=== PATIENT | male | born 1980 | race African-American/Black ===

== ENCOUNTER 2016-06-04 20:02 | Emergency (ER) | payer OTHER ==
[~2016-06-04] VITALS: Ht 175.3 cm; Wt 100.0 kg
[2016-06-04 20:03] VITALS: BP 157/81; PULSE 93; RESP 16; TEMP 98.3; O2SAT 96
--- NOTE | 2016-06-04 20:36 | PD ---
HPI Chief Complaint: Eye Problems/Injury Time Seen by Provider: 20:35 Travel History International Travel<30 days: No Contact w/Intl Traveler<30days: No Traveled to known affect area: No History of Present Illness HPI Patient comes in for evaluation of pain in his right eye that occurred shortly prior to arrival. Patient states he was stacking broke down boxes for recycling when one slid down and hit him in his right eye lateral aspect. Patient states he rinsed his eye with water prior to coming emergency department seemed to help with the pain. Patient denies a change in vision is reports pain in his eye without radiation. Denies any headache or foreign body sensation. FOR[facility]LY [facility] Social History Tobacco Use: Yes Substance Use: No Allergies-Medications (Allergen,Severity, Reaction): Coded Allergies: No Known Allergies (Unverified , 06/04/16) Reported Meds & Prescriptions Reported Meds & Active Scripts Active Erythromycin Opth Oint 5 Mg/Gm Oint 1 Applic RIGHT EYE QID Physical Exam Narrative GENERAL: Well-developed, overly nourished, in no acute distress, and non-ill appearing. SKIN: Warm and dry. HEAD: Atraumatic. Normocephalic. EYES: Pupils equal and round. EOMI. No scleral icterus. No injection or drainage. Patient appears to have a corneal abrasion noted over the right eye. No obvious foreign body noted. ENT: No nasal bleeding or discharge. Mucous membranes pink and moist. NECK: Trachea midline. Supple. No nuclear rigidity. RESPIRATORY: No accessory muscle use. No respiratory distress. MUSCULOSKELETAL: No obvious deformities. No clubbing. No cyanosis. No edema. Full range of motion. NEUROLOGICAL: Awake and alert. No obvious cranial nerve deficits. Motor grossly within normal limits. Normal speech. PSYCHIATRIC: Appropriate mood and affect; insight and judgment normal. Data Data Last Documented VS Vital Signs Date Time Temp Pulse Resp B/P Pulse Ox O2 Delivery O2 Flow Rate FiO2 06/04/16 20:03 98.3 93 16 157/81 96 Room Air Orders Proparacaine 0.5% Opth Soln (Alcaine 0.5 (06/04/16 20:45) MDM Medical Decision Making Medical Screen Exam Complete: Yes Emergency Medical Condition: Yes Differential Diagnosis Foreign body, corneal abrasion, corneal ulcer, periorbital trauma, other Narrative Course The patient has a small corneal abrasion. The patient was examined, stained, and was lamp exam was performed. No evidence of foreign body by exam. There is no evidence of iritis, glaucoma, preseptal cellulitis, periorbital or orbital cellulitis. The diagnosis and problem was discussed with the patient, and the need for frequent ophthalmologic antibiotics was discussed with the patient. The patient was instructed to follow up with ophthalmology next 1-3 days or return here if worsened, increased pain, decreased vision, swelling around the eye or as needed. The patient agreed with plan. Patient in no obvious distress upon re-evaluation. Patient was asked if they wanted to speak to my attending, which the patient did not wish to do at this time. Any questions/concerns in reference to patient diagnosis/condition discussed and clarified prior to patient's discharge. Reinforced sheer importance of close follow up with ophthalmology. Instructed patient to return to ED immediately, if symptoms return/worsen. Pt showed understanding of above instructions. Further instructions and recommendations were detailed in discharge paperwork. Pt ambulated without difficulty out of ED at discharge. Procedures Procedure Narrative Verbal consent was obtained. Affected eye was anesthetized using proparacaine. Fluorescein staining and Wood lamp exam performed with uptake seen. Negative Moody sign. No hyphema, hyperemia, or rust ring. Eyelid was everted with no foreign body noted. No tenderness bilateral temporal arteries to palpation. Patient tolerated procedure well. Diagnosis Primary Impression: Right corneal abrasion Qualified Code: S05.01XA - Right corneal abrasion, initial encounter Referrals: Deya Washington MD Patient Instructions: Corneal Abrasion (ED), General Instructions Additional Instructions: Follow-up with screen maker in one to 3 days for reevaluation. Take all medication as prescribed. Use [id number] Tylenol and) as needed for pain. Follow instructions on the packing. Return to the emergency department if symptoms get worse. Med/Other Pt SpecificInfo: Prescription(s) given Scripts Erythromycin Opth Oint 5 Mg/Gm Oint1 Applic RIGHT EYE QID #1 TUBE Ref 0 Prov:Anna Quan MD 06/04/16 Disposition: 01 DISCHARGE HOME Condition: Stable Ameya Lanier Jun 04, 2016 20:36
[2016-06-04] MEDS ORDERED: PROPARACAINE HCL 0.5% OPHT SOLN 15 ML BTL LEFT EYE ONE (20:45)
[2016-06-04] MEDS ORDERED: ERYTOIN10 RIGHT EYE (20:49)
== END 2016-06-04 21:09 | disposition home or self-care (01) ==
LOC: NEPB 20:02
DX: S05.01XA Injury of conjunctiva and corneal abrasion without foreign body, right eye, initial encounter (principal); W20.8XXA Other cause of strike by thrown, projected or falling object, initial encounter; Y99.0 Civilian activity done for income or pay; Z72.0 Tobacco use
CPT/HCPCS: 99283

== ENCOUNTER 2017-02-07 21:24 | Emergency (ER) | payer OTHER ==
[~2017-02-07] VITALS: Ht 175.3 cm; Wt 105.0 kg
[~2017-02-07 21:24] MED LIST: ERYTOIN10 RIGHT EYE
[2017-02-07 21:26] VITALS: BP 161/84; PULSE 118; RESP 16; TEMP 100; O2SAT 97
[2017-02-07] MEDS ORDERED: SODIUM CHLOR 0.9% 1000 ML INJ 1,000 ML IV ONE (22:15)
[2017-02-07] MEDS ORDERED: KETOROLAC TROMETHAMINE 30 MG/ML (IVP) VIAL IV PUSH ONE (22:15)
[2017-02-07] MEDS ORDERED: ONDANSETRON HCL 4 MG/2 ML VIAL IV PUSH ONE (22:15)
[2017-02-07] MEDS ORDERED: SODIUM CHLORIDE 0.9% FLUSH 10 ML FLUSH IVF PRN (22:15)
--- NOTE | 2017-02-07 22:15 | PD ---
HPI Chief Complaint: Foreign Body Time Seen by Provider: 22:04 Travel History International Travel<30 days: No Contact w/Intl Traveler<30days: No Traveled to known affect area: No History of Present Illness HPI 36 year old male presents to the emergency department for evaluation of sore throat, inability to swallow, loss of voice. Patient states he started with a raspy voice 2 days ago. Since yesterday, he has been unable to eat or drink. He states that he will swallow something and a will come right back up. Patient is hardly able to talk upon my exam and his mother at bedside as well as the talking for him. He has a fever 100.1. He took Tylenol earlier today. He denies any history of the same. He has no chronic medical problems and takes no prescribed medications. No exacerbating or alleviating factors. Moderate severity. PFSH Past Medical History Diminished Hearing: No Inguinal Hernia: Yes Medical other: Yes (excema) Tetanus Vaccination: Unknown Past Surgical History Abdominal Surgery: Yes (groin hernia repair as a baby) Social History Alcohol Use: No Tobacco Use: No Substance Use: No Allergies-Medications (Allergen,Severity, Reaction): Coded Allergies: No Known Allergies (Unverified Allergy, Unknown, 02/07/17) Reported Meds & Prescriptions Reported Meds & Active Scripts Active Erythromycin Opth Oint 5 Mg/Gm Oint 1 Applic RIGHT EYE QID Review of Systems Except as stated in HPI: all other systems reviewed are Neg Physical Exam Narrative GENERAL: Well-nourished, well-developed male patient, ambulatory. Afebrile. SKIN: Focused skin assessment warm/dry. HEAD: Normocephalic. Atraumatic. ENT: Mucosa pink and moist. Uvula is midline. His uvula is midline. However, there does appear to be exudates on bilateral tonsils, tonsils 2+. Uvular edema. No uvular, palatal, or tonsillar deviation. Airway patent. Nasal turbinates appear normal without nasal blood, purulent drainage or septal hematoma. Bilateral tympanic membranes are clear without erythema or perforation. EYES: No scleral icterus. No injection or drainage. NECK: Supple, trachea midline. No JVD or lymphadenopathy. CARDIOVASCULAR: Regular rate and rhythm without murmurs, gallops, or rubs. RESPIRATORY: Breath sounds equal bilaterally. No accessory muscle use. Lungs sounds are clear to auscultation. GASTROINTESTINAL: Abdomen soft, non-tender, nondistended. MUSCULOSKELETAL: No cyanosis, or edema. BACK: Nontender without obvious deformity. No CVA tenderness. Data Data Last Documented VS Vital Signs Date Time Temp Pulse Resp B/P (MAP) Pulse Ox O2 Delivery O2 Flow Rate FiO2 02/07/17 22:12 18 02/07/17 21:26 100.0 118 161/84 (109) 97 Room Air Orders Orders Complete Blood Count With Diff (02/07/17 22:09) Blood Culture (02/07/17 22:09) Ct Soft Tiss Neck W Iv Cont (02/07/17 22:09) Iv Access Insert/Monitor (02/07/17 22:09) Sodium Chloride 0.9% Flush (Ns Flush) (02/07/17 22:15) Sodium Chlor 0.9% 1000 Ml Inj (Ns 1000 M (02/07/17 22:15) Ondansetron Inj (Zofran Inj) (02/07/17 22:15) Comprehensive Metabolic Panel (02/07/17 22:09) Lactic Acid Sepsis Protocol (02/07/17 22:09) Group A Rapid Strep Screen (02/07/17 22:09) Ketorolac Inj (Toradol Inj) (02/07/17 22:15) Monoscreen (02/07/17 22:15) Iohexol 350 Inj (Omnipaque 350 Inj) (02/07/17 22:26) MDM Medical Decision Making Medical Screen Exam Complete: Yes Emergency Medical Condition: Yes Medical Record Reviewed: Yes Interpretation(s) CT soft tissue neck - CONCLUSION: Significantly enlarged tonsillar pillars bilaterally which touch in the midline narrowing the oropharyngeal airway. There are associated enlarged reactive level II lymph nodes bilaterally. No tonsillar or peritonsillar abscess is identified. Differential Diagnosis strep thraot vs. peritonsillar abscess vs. retropharyngeal abscess vs. epiglottis vs. mononucleosis Narrative Course 36 year old male presents to the emergency department for evaluation of inability to talk, inability to swallow, sore throat, fever. IV access established. CBC, CMP, lactic acid, blood cultures 2, monoscreen, strep swab are ordered and pending. CT of the soft tissues the neck with IV contrast is ordered and pending. CT soft tissue of the neck shows significantly enlarged tonsillar pillars bilaterally which touch in the midline narrowing the oropharyngeal airway. There are associated enlarged reactive level II lymph nodes bilaterally. No tonsillar or peritonsillar abscess is identified. Labs and strep are pending. Dr. Martinez will review results and disposition patient. Maria De Jesus Caballero Feb 07, 2017 22:15
[2017-02-07] MEDS ORDERED: IOHEXOL 350 MG/ML 10 ML VIAL (for RAD DIAG) IVCONTRAST ONE (22:26)
--- NOTE | 2017-02-07 22:42 | RADRPT ---
EXAM DATE/TIME: 02/07/2017 22:25 [place] COMPARISON: No previous studies available for comparison. INDICATIONS : Sore throat with difficulty swallowing. IV CONTRAST: 75 cc Omnipaque 350 (iohexol) IV RADIATION DOSE: 17.51 CTDIvol (mGy) MEDICAL HISTORY : Hernia. SURGICAL HISTORY : Hernia repair. ENCOUNTER: Initial ACUITY: 1 day PAIN SCALE: 6/10 LOCATION: neck TECHNIQUE: Volumetric scanning of the neck was performed. Using automated exposure control and adjustment of th e mA and/or kV according to patient size, radiation dose was kept as low as reasonably achievable to obtain optimal diagnostic quality images. DICOM format image data is available electronically for r eview and comparison. FINDINGS: The tonsillar pillars bilaterally are significantly enlarged and touching in the midline narrowing th e oropharyngeal airway. No abscess is identified. There are enlarged level II lymph nodes bilaterally measuring up to 2.4 cm. Epiglottis demonstrates normal shape without thickening. Larynx demonstrates no acute finding. Subman dibular and parotid glands are within normal limits. Visualized sinuses are clear. Intracranial struc tures demonstrate no acute finding. Thyroid gland is within normal limits. CONCLUSION: Significantly enlarged tonsillar pillars bilaterally which touch in the midline narrowing the orophar yngeal airway. There are associated enlarged reactive level II lymph nodes bilaterally. No tonsillar or peritonsillar abscess is identified. Eduard Griffiths MD on February 07, 2017 at 22:37 Board Certified Radiologist. This report was verified electronically.
[2017-02-07 22:58] LABS: AUTOMATED NEUTROPHIL # 19.1 TH/MM3 (1.8-7.7); BASOPHIL # 0.1 TH/MM3 (0-0.2); BASOPHIL % 0.3 % (0.0-2.0); EOSINOPHIL # 0.1 TH/MM3 (0-0.4); EOSINOPHIL % 0.3 % (0.0-4.0); HEMATOCRIT 44.8 % (39.0-51.0); LYMPH % 12.3 % (9.0-44.0); LYMPHOCYTE # 3.4 TH/MM3 (1.0-4.8); MEAN CELL VOLUME 77.9 FL (80.0-100.0); MEAN CORPUSCULAR HGB CONC 34.7 % (32.0-36.0); MONO % 17.1 % (0.0-8.0); PLATELET COUNT 293 TH/MM3 (150-450); RED BLOOD COUNT 5.75 MIL/MM3 (4.50-5.90); RED CELL DISTRIBUTION WIDTH 13.4 % (11.6-17.2); WHITE BLOOD COUNT 27.3 TH/MM3 (4.0-11.0)
[2017-02-07 22:59] LABS: HEMO FLAGS AUTO DIFF
[2017-02-07] MEDS ORDERED: DEXAMETHASONE SOD PHOS 20 MG/5 ML VIAL IV PUSH ONE (23:00)
--- NOTE | 2017-02-07 23:10 | PD ---
Physical Exam Narrative General: The patient is a well-developed well-nourished male in no acute distress Head and Neck exam: Head is normocephalic atraumatic. Eyes: EOMI, pupils are equal round and reactive to light. Nose: Midline septum with pink mucous membranes Mouth: Dentition unremarkable. Moist mucus membranes. Posterior oropharynx is erythematous with tonsillar hypertrophy and exudates noted. Uvula midline. Airway patent. Neck: No palpable lymphadenopathy. No nuchal rigidity. No thyromegaly. Cardiovascular: Regular rate and rhythm without murmurs, gallops, or rubs. Lungs: Clear to auscultation bilaterally. No wheezes, rhonchi, or rales. Abdomen: Soft, without tenderness to palpation in all 4 quadrants of the abdomen. No guarding, rebound, or rigidity. Normal bowel sounds are audible. No tenderness on palpation of McBurney's point. Extremities: No clubbing, cyanosis, or edema. Neurologic Exam: Grossly nonfocal. Skin Exam: No rash noted. Intact skin that is warm and dry. Data Data Last Documented VS Vital Signs Date Time Temp Pulse Resp B/P (MAP) Pulse Ox O2 Delivery O2 Flow Rate FiO2 02/08/17 01:21 96 18 131/80 (97) 96 Room Air 02/07/17 21:26 100.0 Orders Orders Complete Blood Count With Diff (02/07/17 22:09) Blood Culture (02/07/17 22:09) Ct Soft Tiss Neck W Iv Cont (02/07/17 22:09) Iv Access Insert/Monitor (02/07/17 22:09) Sodium Chloride 0.9% Flush (Ns Flush) (02/07/17 22:15) Sodium Chlor 0.9% 1000 Ml Inj (Ns 1000 M (02/07/17 22:15) Ondansetron Inj (Zofran Inj) (02/07/17 22:15) Comprehensive Metabolic Panel (02/07/17 22:09) Lactic Acid Sepsis Protocol (02/07/17 22:09) Group A Rapid Strep Screen (02/07/17 22:09) Ketorolac Inj (Toradol Inj) (02/07/17 22:15) Monoscreen (02/07/17 22:15) Iohexol 350 Inj (Omnipaque 350 Inj) (02/07/17 22:26) Dexamethasone Inj (Decadron Inj) (02/07/17 23:00) Ceftriaxone Inj (Rocephin Inj) (02/07/17 23:15) Oral Rehydration (02/07/17 23:10) Labs Laboratory Tests Test 02/07/17 22:18 02/07/17 22:40 White Blood Count 27.3 TH/MM3 Red Blood Count 5.75 MIL/MM3 Hemoglobin 15.5 GM/DL Hematocrit 44.8 % Mean Corpuscular Volume 77.9 FL Mean Corpuscular Hemoglobin 27.0 PG Mean Corpuscular Hemoglobin Concent 34.7 % Red Cell Distribution Width 13.4 % Platelet Count 293 TH/MM3 Mean Platelet Volume 8.5 FL Neutrophils (%) (Auto) 70.0 % Lymphocytes (%) (Auto) 12.3 % Monocytes (%) (Auto) 17.1 % Eosinophils (%) (Auto) 0.3 % Basophils (%) (Auto) 0.3 % Neutrophils # (Auto) 19.1 TH/MM3 Lymphocytes # (Auto) 3.4 TH/MM3 Monocytes # (Auto) 4.7 TH/MM3 Eosinophils # (Auto) 0.1 TH/MM3 Basophils # (Auto) 0.1 TH/MM3 CBC Comment AUTO DIFF Differential Comment AUTO DIFF CONFIRMED Blood Urea Nitrogen 8 MG/DL Creatinine 1.04 MG/DL Random Glucose 133 MG/DL Total Protein 9.5 GM/DL Albumin 3.8 GM/DL Calcium Level 9.2 MG/DL Alkaline Phosphatase 70 U/L Aspartate Amino Transf (AST/SGOT) 18 U/L Alanine Aminotransferase (ALT/SGPT) 35 U/L Total Bilirubin 1.0 MG/DL Sodium Level 135 MEQ/L Potassium Level 3.5 MEQ/L Chloride Level 99 MEQ/L Carbon Dioxide Level 26.1 MEQ/L Anion Gap 10 MEQ/L Estimat Glomerular Filtration Rate 98 ML/MIN Monoscreen NEG Lactic Acid Level 1.4 mmol/L [facility] Medical Record Reviewed: Yes Supervised Visit with ZACHERY: Yes Interpretation(s) Last Impressions Neck CT 02/07/172208 Signed Impressions: Service Date/Time: Tuesday, February 07, 2017 22:25 - CONCLUSION: Significantly enlarged tonsillar pillars bilaterally which touch in the midline narrowing the oropharyngeal airway. There are associated enlarged reactive level II lymph nodes bilaterally. No tonsillar or peritonsillar abscess is identified. Eduard Griffiths MD Differential Diagnosis Strep pharyngitis, versus mononucleosis, versus epiglottitis, versus allergic reaction Narrative Course During the course of the patients emergency department visit, the patients history, examination, and differential diagnosis were reviewed with the patient. The patient was placed on a monitoring tech with oximetry and frequent blood pressure monitoring. The patient had IV access obtained and blood work sent for analysis. The patient was initially provided normal saline IV fluids, Toradol for pain, Zofran for nausea. The patient was given Decadron 10 mg IV for tonsillar swelling, Rocephin 1 g IV when rapid strep test came back positive. The patient was started on by mouth hydration and tolerated this well. The patients laboratory studies were reviewed and remarkable for white count 27.3, hemoglobin 15.5, platelets 293 with a monocytosis at 17.1, CMP is remarkable for sodium 135, glucose 133, total protein 9.5, lactic acid 1.4, monocytes screen negative. Radiology studies were reviewed and remarkable for a CT scan of the neck that reveals enlarged tonsillar pillars bilaterally which touch in the midline narrowing or pharyngeal airway. There are associated enlarged reactive lymph nodes bilaterally. No tonsillar or peritonsillar abscesses identified. The patient will be discharged home with a prescription for amoxicillin. The patient is resting comfortably and feels better, is alert and in no distress. The patients results and examination findings were discussed with the patient. The repeat examination is unremarkable and benign. The history, exam, diagnostic testing, and current condition do not suggest any significant pathology to warrant further testing, continued ED treatment, admission, or surgical evaluation at this point. The vital signs have been stable. The patient does not have uncontrollable pain, intractable vomiting, or other significant symptoms. The patient's condition is stable and appropriate for discharge. The patient will pursue further outpatient evaluation with a primary care physician or other designated or consulting physician as indicated in the discharge instructions. The patient expressed understanding and was agreeable with this plan. Diagnosis Primary Impression: Strep pharyngitis Referrals: [facility] Primary Care Physician Patient Instructions: General Instructions, Strep Throat (ED) Departure Forms: Tests/Procedures, Work Release Enter return to work date: Feb 10, 2017 Med/Other Pt SpecificInfo: Prescription(s) given Scripts Amoxicillin (Amoxicillin) 500 Mg Tab 500 MG PO BID for Infection for 10 Days, #20 TAB 0 Refills Prov: Gricelda Martinez MD 02/08/17 Disposition: 01 DISCHARGE HOME Condition: Stable Gricelda Martinez MD Feb 07, 2017 23:10
[2017-02-07] MEDS ORDERED: cefTRIAXone INJ 1,000 MG in SODIUM CHLORIDE 0.9% INJ 100 ML IV ONE (23:15)
[2017-02-07 23:16] LABS: ALT (GPT) 35 U/L (12-78); ANION GAP 10 MEQ/L (5-15); AST (GOT) 18 U/L (15-37); BICARBONATE 26.1 MEQ/L (21.0-32.0); BLOOD UREA NITROGEN 8 MG/DL (7-18); CHLORIDE 99 MEQ/L (98-107); GLOMERULAR FILTRATION RATE 98 ML/MIN (>89); POTASSIUM 3.5 MEQ/L (3.5-5.1); SODIUM (NA) 135 MEQ/L (136-145)
[2017-02-07 23:18] LABS: ALKALINE PHOSPHATASE 70 U/L (45-117)
[2017-02-07 23:34] LABS: SCAN/DIFF AUTO DIFF CONFIRMED
[2017-02-08 01:21] VITALS: BP 131/80; PULSE 96; RESP 18; O2SAT 96
[2017-02-08] MEDS ORDERED: AMOX500T PO (01:24)
== END 2017-02-08 02:02 | disposition home or self-care (01) ==
LOC: NEPE 21:24
DX: J02.0 Streptococcal pharyngitis (principal); B95.0 Streptococcus, group A, as the cause of diseases classified elsewhere
CPT/HCPCS: 70491; 80053; 83605; 85025; 86308; 87040; 87880; 96374; 96375; 99285; J0696; J1100; J1885; J2405; J7030; Q9967